=== PATIENT | male | born 1980 | race Hispanic/Latino ===

== ENCOUNTER 2019-07-25 01:22 | Emergency (ER) | payer SELFPAY ==
[2019-07-25] MEDS ORDERED: Ondansetron PF 4 MG/2 ML Vial ONE (02:01)
[2019-07-25 02:09] LABS: #Basophils 0.1 thou/uL (0.0-0.2); #Eosinphils 0.2 thou/uL (0.0-0.7); #Monocytes 0.6 thou/uL (0.11-0.59); #Neutrophils 3.6 thou/uL (1.40-6.50); %Eosinophils 2.6 % (0.0-10.0); %Lymphocytes 40.2 % (21.0-51.0); %Monocytes 7.6 % (0.0-10.0); %Neutrophils 48.6 % (42.0-75.0); Hemoglobin 14.7 g/dL (14.0-18.0); Mean Corpuscular HGB CONC 35.2 g/dL (32.0-36.0); Mean Corpuscular Hemoglobin 33.1 pg (27.0-31.0); Mean Platelet Volume 7.7 fL (7.4-10.4); Platelet Count 227 thou/uL (130-400); Red Blood Cell (RBC) Count 4.45 mill/uL (4.70-6.10); White Blood Cell (WBC) Count 7.4 thou/uL (4.8-10.8)
[2019-07-25 02:27] LABS: ALT (SGPT) 23 U/L (8-55); AST (SGOT) 16 U/L (5-34); Albumin 3.8 g/dL (3.5-5.0); Alkaline Phosphatase 129 U/L (40-110); Anion Gap 11 mmol/L (10-20); BUN (Urea Nitrogen) 15 mg/dL (8.9-20.6); Bilirubin, Total 0.3 mg/dL (0.2-1.2); Calc. Creatinine Clearance 0 mL/min (70-130); Calcium 8.6 mg/dL (7.8-10.44); Carbon Dioxide 23 mmol/L (22-29); Chloride 107 mmol/L (98-107); Estimated GFR-MDRD 89; Globulin 2.8 g/dL (2.4-3.5); Glucose 145 mg/dL (70-105); Lipase 89 U/L (8-78); Potassium 3.4 mmol/L (3.5-5.1); Protein, Total 6.6 g/dL (6.0-8.3); Sodium 138 mmol/L (136-145)
[2019-07-25 02:36] LABS: Bilirubin Negative (Negative); Blood, Urine Negative (Negative); Clarity Clear (Clear); Glucose, Urine (Dipstick) Normal (Negative); Leukocyte Negative Leu/uL (Negative); Nitrite Negative (Negative); Protein, Urine (Dipstick) Negative (Neg-Trace); Urobilinogen Normal mg/dL (Less than 2)
--- NOTE | 2019-07-25 08:03 | ULT ---
PRELIMINARY REPORT/[facility]/EMERGENCY AFTER HOURS PROCEDURE EXAM: US Abdomen Limited, Right Upper Quadrant. CLINICAL HISTORY: RUQ pain, constipation TECHNIQUE: Real-time ultrasound of the right upper quadrant with image documentation. COMPARISON: None provided. FINDINGS: LIVER: Measures 16.5 cm. Fatty infiltration GALLBLADDER: No gallstone. No wall thickening. No pericholecystic fluid. Appears contracted COMMON BILE DUCT: No dilation. Measures 3.2 mm PANCREAS: Partially obscured by overlying bowel gas. RIGHT KIDNEY: Unremarkable. No hydronephrosis. Measures 11.4 cm IMPRESSION: Fatty infiltration of the liver with no acute process ELECTRONICALLY SIGNED BY: Minesh Castaneda MD Jul 25, 2019 2:56:11 AM CDT This report is intended for review by the ordering physician only, in accordance of law. If you recei ve this report in error, please call [facility] at [phone]. FINAL REPORT Final report by Dr. Barone Emergency after-hours study ULTRASOUND ABDOMEN LIMITED: (RIGHT UPPER QUADRANT) DATE: 07/25/2019 HISTORY: Right upper quadrant abdominal pain in 39-year-old male FINDINGS: Gallbladder:Contracted. No obvious gallstone identified. Common duct: 3 mm. Liver:Diffusely increased echogenicity without much signal dropout in deep skelton. This may or may no t represent fatty liver. Pancreas:Tail obscured by shadowing from bowel gas. Right kidney:No hydronephrosis. No major disagreement with preliminary report by [facility]. IMPRESSION: 1. Limited evaluation of the gallbladder because of contracted state. 2. Possible hepatic steatosis. Transcribed Date/Time: 07/25/2019 8:11 AM
== END 2019-07-25 03:45 | disposition home or self-care (01) ==
LOC: ERS 01:22
DX: R10.11 Right upper quadrant pain (principal); F17.210 Nicotine dependence, cigarettes, uncomplicated
CPT/HCPCS: 36415; 76705; 80053; 81003; 83690; 85025; 96374; J2405